=== PATIENT | female | born 1935 | race Asian ===

== ENCOUNTER 2021-12-13 18:58 | Inpatient (IN) | payer OTHER, MEDICAID ==
[~2021-12-13] VITALS: Ht 160 cm; Wt 56.7 kg
[2021-12-13 19:00] VITALS: BP 117/46
--- NOTE | 2021-12-13 19:00 | NUR ---
Patient to to bed 7 by EMS
--- NOTE | 2021-12-13 19:05 | NUR ---
BIBA TO ROOM 7
--- NOTE | 2021-12-13 19:06 | NUR ---
MD CARDENAS AT BEDSIDE FOR EVALUATION
--- NOTE | 2021-12-13 19:31 | NUR ---
RADIOLOGY AT BEDSIDE
[2021-12-13] MEDS ORDERED: AMOX500C25 PO (19:54)
[2021-12-13] MEDS ORDERED: SENN-73 PO (19:54)
[2021-12-13] MEDS ORDERED: CLOP75TA26 PO (19:54)
[2021-12-13] MEDS ORDERED: FURO-572 PO (19:54)
[2021-12-13] MEDS ORDERED: FOLI0.8T22 PO (19:54)
[2021-12-13] MEDS ORDERED: CARV3.12 PO (19:54)
[2021-12-13] MEDS ORDERED: cefTRIAXone 1,000 MG in DEXT 5% MINI-BAG PLUS 50 ML IV ONE (19:55)
--- NOTE | 2021-12-13 19:55 | NUR ---
ETHAN AND DEDE COLLECTED TAKEN TO LAB.
--- NOTE | 2021-12-13 20:00 | NUR ---
86 yo f david from an independent living home w c/c of 08/31 nonrad chest pain since 0800. pt points at mischest. Pt without treatment for pain. Pt denies fever, chills, nausea or vomiting. Pt with SOB. Pt denies cough. hx:chf, htn
[2021-12-13 20:05] LABS: BASOPHILS # (AUTO) 0.1 K/uL (0.00-0.22); BASOPHILS % (AUTO) 0.8 % (0.0-2.0); EOSINOPHILS # (AUTO) 0.2 K/uL (0-0.4); EOSINOPHILS % (AUTO) 2.5 % (0.0-4.0); HEMATOCRIT 34.5 % (36-48); HEMOGLOBIN 11.5 g/dL (12.0-16.0); LYMPHOCYTES # (AUTO) 0.9 K/uL (2.5-16.5); LYMPHOCYTES % (AUTO) 13.9 % (20.5-51.1); MEAN CORPUSCULAR HEMOGLOBIN 30 pg (27-31); MEAN CORPUSCULAR HGB CONC 33 g/dL (33-37); MONOCYTES # (AUTO) 0.5 K/uL (0.8-1.0); MONOCYTES % (AUTO) 7.7 % (1.7-9.3); NEUTROPHILS # (AUTO) 5.1 K/uL (1.8-7.7); NEUTROPHILS % (AUTO) 75.1 % (42.2-75.2); PLATELET COUNT (AUTO) 228 K/uL (140-450); RED BLOOD CELL COUNT(AUTO) 3.79 MIL/uL (4.20-5.40); RED CELL DISTRIBUTION WIDTH 15.3 % (11.6-13.7); WHITE BLOOD COUNT (AUTO) 6.8 K/uL (4.8-10.8)
--- NOTE | 2021-12-13 20:18 | NUR ---
lab at bedside for cultures.
[2021-12-13] MEDS ORDERED: cefTRIAXone 1,000 MG VIAL ONE (20:23)
[2021-12-13 21:19] LABS: ALBUMIN 2.6 g/dL (3.4-5.0); ANION GAP 10.9 (8-16); ASPARTATE AMINOTRANSFERASE 29 U/L (15-37); CHLORIDE 103 mmol/L (98-107); CREATININE 1.1 mg/dL (0.6-1.3); GLUCOSE 165 mg/dL (74-106); POTASSIUM 3.9 mmol/L (3.5-5.1); SODIUM SERUM 138 mmol/L (136-145); TOTAL BILIRUBIN 0.3 mg/dL (0.0-1.0); UREA NITROGEN, BLOOD 27 mg/dL (7-18)
[2021-12-13] MEDS ORDERED: DOCUSATE SODIUM 100 MG GELCAP PO PRN (21:50)
[2021-12-13] MEDS ORDERED: ZOLPIDEM 5 MG TAB PO PRN (21:50)
[2021-12-13] MEDS ORDERED: ONDANSETRON 4 MG/2 ML VIAL IM/IVP PRN (21:50)
[2021-12-13] MEDS ORDERED: ACETAMINOPHEN 325 MG TAB PO PRN (21:50)
[2021-12-13] MEDS ORDERED: guaiFENesin DM 200/20 MG-10 ML 10 ML UDC PO PRN (21:50)
[2021-12-13] MEDS ORDERED: AZITHROMYCIN 500 MG INJ VIAL IV ONE (23:00)
[2021-12-13] MEDS: ENOXAPARIN 60 MG/0.6 ML SYR SUBQ SCH (23:10)
[2021-12-13] MEDS: FUROSEMIDE 40 MG/4 ML VIAL IVP SCH (23:12)
[2021-12-13] MEDS: AZITHROMYCIN 500 MG in DEXTROSE 5% 250 ML IV SCH (23:13)
[2021-12-13] MEDS: LOVENOX 1MG/KG Q12H SUBQ SCH (23:14)
[2021-12-13 23:18] LABS: PROTHROMBIN TIME 10.4 secs (10.8-13.4)
[2021-12-13 23:31] LABS: MAGNESIUM 2.3 mg/dL (1.8-2.4); PHOSPHORUS 3.5 mg/dL (2.5-4.9)
--- NOTE | 2021-12-13 23:35 | NUR ---
pt ambulated to and back to bed.
--- NOTE | 2021-12-14 00:10 | NUR ---
pt ambulated to and back ot bed.
--- NOTE | 2021-12-14 00:15 | NUR ---
Patient will be admitted to care of . Admited to tele. Will go to [id number]. Belongings list completed. Report to allen luevano.
[2021-12-14 00:20] VITALS: BP 118/75
--- NOTE | 2021-12-14 00:39 | NUR ---
GET THE PATIENT FROM ER NURSE BHUPENDRA, PATIENT IS ALERT ORIENTED X3, PATIENT SPEAK MANDARIN LANGUAGE, PATIENT IS LYING ON BED, PATIENT IS RECEIVING OXYGEN 2 LITER VIA NASAL CANNULA, VITAL SIGN IS WITHIN THE NORMAL RANGE, ALL FALL PRECAUTION MEASURE ARE IN PLACE, CALL LIGHT IS WITHIN THE REACH, WILL CONTINUE TO MONITOR PATIENT.
--- NOTE | 2021-12-14 02:14 | NUR ---
USE ENVELOPE MACHINE OPERATOR TO TRANSLATE LANGUAGE , NAME: EDITH, ID NO : [id number]
[2021-12-14 04:00] VITALS: BP 119/60
--- NOTE | 2021-12-14 04:26 | NUR ---
VITAL SIGN IS WITHIN THE NORMAL RANGE, ALL SCHEDULE MEDICATION IS GIVEN PER DOCTOR ORDER, NO ANY COMPLAIN OF PAIN OR SHORTNESS OF BREATH AT THIS TIME, CALL LIGHT IS WITHIN THE REACH, WILL CONTINUE TO MONITOR PATIENT.
[2021-12-14 06:56] LABS: BASOPHILS # (AUTO) 0.1 K/uL (0.00-0.22); EOSINOPHILS # (AUTO) 0.3 K/uL (0-0.4); EOSINOPHILS % (AUTO) 4.2 % (0.0-4.0); HEMATOCRIT 33.2 % (36-48); HEMOGLOBIN 11.1 g/dL (12.0-16.0); LYMPHOCYTES # (AUTO) 1.8 K/uL (2.5-16.5); LYMPHOCYTES % (AUTO) 21.8 % (20.5-51.1); MEAN CORPUSCULAR HEMOGLOBIN 30 pg (27-31); MEAN CORPUSCULAR HGB CONC 33 g/dL (33-37); MEAN CORPUSCULAR VOLUME 90.5 fL (80-94); MONOCYTES # (AUTO) 0.8 K/uL (0.8-1.0); MONOCYTES % (AUTO) 10.2 % (1.7-9.3); NEUTROPHILS # (AUTO) 5.2 K/uL (1.8-7.7); NEUTROPHILS % (AUTO) 62.8 % (42.2-75.2); PLATELET COUNT (AUTO) 224 K/uL (140-450); RED BLOOD CELL COUNT(AUTO) 3.67 MIL/uL (4.20-5.40); RED CELL DISTRIBUTION WIDTH 15.6 % (11.6-13.7); WHITE BLOOD COUNT (AUTO) 8.2 K/uL (4.8-10.8)
[2021-12-14 07:18] LABS: ANION GAP 10.2 (8-16); CHLORIDE 103 mmol/L (98-107); CREATININE 1.1 mg/dL (0.6-1.3); GLUCOSE 90 mg/dL (74-106); POTASSIUM 3.2 mmol/L (3.5-5.1); SODIUM SERUM 139 mmol/L (136-145); UREA NITROGEN, BLOOD 21 mg/dL (7-18)
--- NOTE | 2021-12-14 07:37 | NUR ---
gave the report to morning nurse anna for continuos of care, patient is stable.
--- NOTE | 2021-12-14 07:40 | NUR ---
RECEIVED PT AWAKE AND ALERT. MANDARIN SPEAKING. ON O2 VIA N/C. SINUS RHYTHM ON MONITOR. ABD SOFT WITH ACTIVE BOWEL SOUNDS. CONTINENT BOWEL AND BLADDER. PERIPHERAL IV RAC 20 GAUGE SALINE LOCKED. SAFETY PRECAUTIONS IN PLACE.
[2021-12-14 08:00] VITALS: BP 121/73
[2021-12-14] MEDS: CLOPIDOGREL 75 MG TAB PO SCH (08:43)
[2021-12-14] MEDS: SENNA 8.6 MG TAB PO SCH (08:43)
[2021-12-14] MEDS: FUROSEMIDE 40 MG/4 ML VIAL IVP SCH (08:44)
[2021-12-14] MEDS: carvediloL 3.125 MG TAB PO SCH ×2 (08:44→21:00)
[2021-12-14] MEDS: LOVENOX 1MG/KG Q12H SUBQ SCH (09:00)
[2021-12-14] MEDS ORDERED: POTASSIUM CHLORIDE 10 MEQ TABER PO SCH (10:00)
[2021-12-14] MEDS ORDERED: POTASSIUM CHLORIDE 10 MEQ TABER PO PRN (10:20)
[2021-12-14] MEDS: ENOXAPARIN 60 MG/0.6 ML SYR SUBQ SCH ×2 (10:24→21:33)
--- NOTE | 2021-12-14 11:15 | NUR ---
DR. KOO AT BEDSIDE EXAMINING PT.
[2021-12-14 12:00] VITALS: BP 133/68
[2021-12-14] MEDS ORDERED: MAG SULF 2000 MG/WATER PREMIX 50 ML IV PRN (13:30)
[2021-12-14 16:00] VITALS: BP 97/60
--- NOTE | 2021-12-14 18:23 | NUR ---
URINE COLLECTED AND WALKED TO LAB.
[2021-12-14 18:32] LABS: APPEARANCE,URINE CLEAR (CLEAR); BILIRUBIN,URINE NEGATIVE (NEGATIVE); BLOOD, URINE TRACE-I (NEGATIVE); COLOR,URINE YELLOW (YELLOW); LEUKOCYTE ESTERASE ,URINE NEGATIVE (NEGATIVE); NITRITE, URINE NEGATIVE (NEGATIVE); UGLUCOSE NEGATIVE (NEGATIVE)
[2021-12-14 18:45] LABS: RBC,URINE 0-5 /HPF (0-5); WBC,URINE 0-5 /HPF (0-5)
[2021-12-14 18:46] LABS: TRICHOMONAS,URINE None Seen /HPF (None Seen); YEAST,URINE None Seen /HPF (None Seen)
--- NOTE | 2021-12-14 19:10 | NUR ---
ENDORSED TO MOLD FILLING OPERATOR NURSE GUILLERMO FOR CONTINUITY OF CARE.
--- NOTE | 2021-12-14 19:30 | NUR ---
RECEIVED PT FROM AM NURSE FOR CONTINUITY OF CARE. PT IS STABLE
[2021-12-14 20:00] VITALS: BP 98/62
[2021-12-14] MEDS: AZITHROMYCIN 500 MG in DEXTROSE 5% 250 ML IV SCH (20:00)
[2021-12-15] VITALS: BP 99/56
--- NOTE | 2021-12-15 01:00 | NUR ---
PATIENT ASLEEP, NO DISTRESS NOTED
[2021-12-15 04:00] VITALS: BP 98/59
--- NOTE | 2021-12-15 07:15 | NUR ---
RECEIVED REPORT FROM GROUP COUNSELOR NURSE FOR CONTINUITY OF CARE. PATIENT AWAKE NO DISTRESS NOTED ON O2 AT 2L/MIN VIA NASAL CANULA. IV SITE ON RIGHT AC MARVA 20 SALINE LOCK. PATIENT ON STABLE CONDITION.
--- NOTE | 2021-12-15 07:15 | NUR ---
ENDORSED PT TO AM NURSE FOR CONTINUITY OF CARE. PT IS STABLE
[2021-12-15 07:26] LABS: ANION GAP 11.8 (8-16); CARBON DIOXIDE 30.2 mmol/L (21-32); CHLORIDE 100 mmol/L (98-107); CREATININE 1.2 mg/dL (0.6-1.3); GLUCOSE 95 mg/dL (74-106); SODIUM SERUM 138 mmol/L (136-145); UREA NITROGEN, BLOOD 24 mg/dL (7-18)
[2021-12-15 07:34] LABS: BASOPHILS # (AUTO) 0.1 K/uL (0.00-0.22); BASOPHILS % (AUTO) 0.7 % (0.0-2.0); EOSINOPHILS # (AUTO) 0.4 K/uL (0-0.4); HEMATOCRIT 33.9 % (36-48); HEMOGLOBIN 11.2 g/dL (12.0-16.0); LYMPHOCYTES # (AUTO) 2.3 K/uL (2.5-16.5); LYMPHOCYTES % (AUTO) 30.2 % (20.5-51.1); MEAN CORPUSCULAR HEMOGLOBIN 30 pg (27-31); MEAN CORPUSCULAR HGB CONC 33 g/dL (33-37); MEAN CORPUSCULAR VOLUME 90.6 fL (80-94); MONOCYTES # (AUTO) 0.8 K/uL (0.8-1.0); MONOCYTES % (AUTO) 10.4 % (1.7-9.3); NEUTROPHILS % (AUTO) 53.7 % (42.2-75.2); PLATELET COUNT (AUTO) 201 K/uL (140-450); RED BLOOD CELL COUNT(AUTO) 3.74 MIL/uL (4.20-5.40); RED CELL DISTRIBUTION WIDTH 15.7 % (11.6-13.7); WHITE BLOOD COUNT (AUTO) 7.5 K/uL (4.8-10.8)
[2021-12-15 08:00] VITALS: BP 90/54
[2021-12-15] MEDS: FUROSEMIDE 40 MG/4 ML VIAL IVP SCH (08:52)
[2021-12-15] MEDS: AZITHROMYCIN 500 MG in DEXTROSE 5% 250 ML IV SCH (08:52)
[2021-12-15] MEDS: carvediloL 3.125 MG TAB PO SCH ×2 (09:00→20:23)
[2021-12-15] MEDS: CLOPIDOGREL 75 MG TAB PO SCH (09:27)
[2021-12-15] MEDS: SENNA 8.6 MG TAB PO SCH (09:27)
[2021-12-15] MEDS: ENOXAPARIN 60 MG/0.6 ML SYR SUBQ SCH (09:28)
--- NOTE | 2021-12-15 09:35 | NUR ---
GIVEN DUE MEDICATION HELD COREG AND LASIX DUE TO BLOOD PRESSURE OF 90/54. PATIENT ASSISTED TO TOILET. IV ANTIBIOTIC INFUSING AT THIS TIME NO ADVERSE REACTION NOTED NO COUGHING OR CONGESTION NOTED.
--- NOTE | 2021-12-15 10:42 | NUR ---
PATIENT HAS BEEN SCREENED AND CATEGORIZED MODERATE NUTRITION RISK. PATIENT WILL BE SEEN WITHIN 3-5 DAYS OF ADMISSION. 12/13/21-12/18/21 REVIEWED BY TIAN VILL[address] RD
[2021-12-15 12:00] VITALS: BP 122/67
--- NOTE | 2021-12-15 12:07 | NUR ---
P.T. NOTES P.T. EVAL COMPLETED; REFER TO EVAL FOR DETAILS.
--- NOTE | 2021-12-15 14:35 | NUR ---
DC PLANNING PER NOTES, PT IS A&OX3 THEREFORE, GISELA OUTREACHED TO PT'S DAUGHTER RINA,DAUGHTER, TO GATHER COLLATERAL INFORMATION HOWEVER, RINA REQUESTED SW CALL HER BROTHER, KAMILLA, TO GATHER COLLATERAL INFORMATION. GISELA SPOKE WITH KAMILLA WHO REPORTS THAT PT RESIDES ALONE IN AN APT. PATIENT REPORTS HE, AND RINA GLORIA ARE PT EMERGENCY CONTACTS. KAMILLA REPORTS THAT PATIENT MEETS WITH HER PCP, DR KEYES, LAST VISIT; ONE WEEK AGO. PATIENTS NIECE IS REPORTED TO ASSIST IN TAKING PT TO MEET WITH PCP, WHEN NEEDED. PATIENT IS REPORTED TO MEDICATION COMPLIANT, FAMILY DENIES BARRIERS IN ACCESS TO NEEDED MEDICATIONS. PATIENTS MEDICATION IS DELIVERED TO HER HOME BY [facility]. PATIENT IS REPORTED TO BE AMBULATORY WITH DME ASSISTANCE; WALKER, CANE, HOME O2. PATIENT REQUIRES SOME ASSISTANCE WITH [place] WHICH PTS DAUGHTER AIDS IN. PATIENT IS REPORTED TO BE RECEIVING HH SERVICES BEGAN THREE WEEKS AGO, HOWEVER, KAMILLA UNABLE TO RECALL NAME OF HH AGENCY. PATIENT REPORTS THAT HH WAS ARRANGED BY PT'S PCP. BRAIN DENIES HX OF SNF PLACEMENT. KAMILLA REPORTS DC PLAN IS FOR PATIENT TO RETURN HOME AND THAT ACCESS TRANSPORTATION WILL BE ARRANGED FOR P/U ONCE CLEARED FOR DC. GISELA INQUIRED ON RESOURCES NEEDED, KAMILLA DECLINED AT THIS TIME.
--- NOTE | 2021-12-15 15:06 | NUR ---
DC PLANNING: PATIENT HAS AN ORDER FOR HOME HEALTH FOR PT. FAXED TO [facility] CM TO FOLLOW Addendum: 12/16/21 at 1512 by Elise Greenfield RN DC PLANNING: PATIENT IS STILL SYMPTOMATIC, SEEN BY SUSTAINABILITY SPECIALIST RECOMMENDED CONSERVATIVE CARDIAC MANAGEMENT FOLLOW UP WITH ECHO CONTINUE LASIX IV . DC PLAN TO GO HOME WITH [facility] TOMORROW. CM TO FOLLOW Addendum: 12/17/21 at 1220 by Elise Greenfield RN DC PLANNING: PER FAMILY MEMBER PATIENT IS WITH [facility] CALLED [phone] SPOKE WITH IDANIA STATED THEY CAN RESUME THE CARE UPON DISCHARGE. FAXED ALL PAPER WORK TO [phone]. PT WILL BE DC HOME WITH HOME HEALTH TODAY. NOTIFIED OSITO PEREZ.
[2021-12-15 16:00] VITALS: BP 109/61
--- NOTE | 2021-12-15 16:00 | NUR ---
PATIENT ON BED RESTING OFFERED TEA AND SHE LIKE IT. CALL LIGHT WITH IN EASY REACH.
--- NOTE | 2021-12-15 19:03 | NUR ---
PATIENT ON BED JUST FINISH EATING DINNER ATE 90 % OF HER DINNER. CALL LIGHT WITH IN EASY REACH.
--- NOTE | 2021-12-15 19:28 | NUR ---
GAVE REPORT TO ELECTRICAL SUBCONTRACTOR NURSE SUZIE FOR CONTINUITY OF CARE.
[2021-12-15 20:00] VITALS: BP 98/56
--- NOTE | 2021-12-15 20:00 | NUR ---
RECEIVED BEDSIDE REPORT FROM DAY NURSE FOR CONTINUITY OF CARE. RECEIVED PATIENT LAYING IN BED QUIETLY. NO SIGN AND SYMPTOMS OF DISTRESS NOTED. PT DENIES CHEST PAIN, SOB, PALPITATIONS AND DIZZINESS. FALL PRECAUTION IMPLEMENTED. INSTRUCTED THE PT TO CALL FOR ASSISTANCE AT ALL TIMES.CALL LIGHT WITHIN REACH. WILL CONTINUE POC.
--- NOTE | 2021-12-15 20:24 | NUR ---
HELD COREG, PATIENT BP 98/56.
[2021-12-16] VITALS: BP 99/59
--- NOTE | 2021-12-16 | NUR ---
BP 99/59, HR-79,AFEBRILE, SATING 98% ON 2L/NC. SR/SA ON TELE, HR-80. DENIES PAIN PAIN. CALL LIGHT WITHIN REACH.
--- NOTE | 2021-12-16 02:00 | NUR ---
PATIENT ASLEEP AT THIS TIME. VISIBLE CHEST RISE AND FALL NOTED. WILL CONTINUE TO OBSERVE.
[2021-12-16 04:00] VITALS: BP 104/56
--- NOTE | 2021-12-16 04:00 | NUR ---
VITAL SIGNS STABLE, AFEBRILE, SATING 96% ON 2L/NC DENIES PAIN AND NOT IN ANY DISTRESS. SR/SA ON TELE ,HR- 84. CALL LIGHT WITHIN REACH.
--- NOTE | 2021-12-16 04:30 | NUR ---
USED THE MANDARIN SENIOR SOFTWARE DEVELOPMENT ENGINEER FROM [employer] TO ASKED PATIENT QUESTIONS. PATIENT UNABLE TO HEAR WELL EVEN WITH HER LEFT HEARING AIDE IN PLACED. OTHERWISE NO COMPLAIN AT THIS TIME AND ABLE TO ANSWER SOME OF THE QUESTION.
--- NOTE | 2021-12-16 06:00 | NUR ---
NO ACUTE EVENT THROUGHOUT THE NIGHT. PATIENT NOT IN ANY DISTRESS AND NO COMPLAIN AT THIS TIME. PATIENT STABLE. ALL NEEDS ATTENDED. CALL LIGHT WITHIN REACH . WILL ENDORSE THE PATIENT TO THE ONCOMING NURSE FOR CONTINUITY OF CARE.
--- NOTE | 2021-12-16 07:19 | NUR ---
ENDORSED PATIENT TO DAY NURSE. PATIENT IS STABLE. SIGNING OFF.
--- NOTE | 2021-12-16 07:21 | NUR ---
RECEIVED PT FROM DATAPOWER CONSULTANT NURSE FOR CONTINUITY OF CARE. PT IN BED AWAKE. RESPIRATIONS EVEN AND UNLABORED. NO SIGNS OF DISTRESS NOTED. CALL LIGHT WITHIN REACH. ALL SAFETY PRECAUTIONS IN PLACE.
[2021-12-16 07:24] LABS: BASOPHILS # (AUTO) 0.1 K/uL (0.00-0.22); EOSINOPHILS # (AUTO) 0.5 K/uL (0-0.4); HEMATOCRIT 33.5 % (36-48); HEMOGLOBIN 11.4 g/dL (12.0-16.0); LYMPHOCYTES % (AUTO) 21.6 % (20.5-51.1); MEAN CORPUSCULAR HEMOGLOBIN 31 pg (27-31); MEAN CORPUSCULAR HGB CONC 34 g/dL (33-37); MEAN CORPUSCULAR VOLUME 90.2 fL (80-94); MONOCYTES # (AUTO) 0.7 K/uL (0.8-1.0); MONOCYTES % (AUTO) 7.8 % (1.7-9.3); NEUTROPHILS # (AUTO) 5.8 K/uL (1.8-7.7); NEUTROPHILS % (AUTO) 64.6 % (42.2-75.2); RED BLOOD CELL COUNT(AUTO) 3.72 MIL/uL (4.20-5.40); RED CELL DISTRIBUTION WIDTH 15.6 % (11.6-13.7); WHITE BLOOD COUNT (AUTO) 9.1 K/uL (4.8-10.8)
[2021-12-16 07:30] LABS: ANION GAP 8.9 (8-16); CARBON DIOXIDE 32.9 mmol/L (21-32); CHLORIDE 101 mmol/L (98-107); CREATININE 1.2 mg/dL (0.6-1.3); GLUCOSE 98 mg/dL (74-106); POTASSIUM 3.8 mmol/L (3.5-5.1); SODIUM SERUM 139 mmol/L (136-145); UREA NITROGEN, BLOOD 21 mg/dL (7-18)
[2021-12-16 08:00] VITALS: BP 141/59
[2021-12-16 08:23] LABS: PLATELET COUNT (AUTO) 217 K/uL (140-450)
[2021-12-16] MEDS: SENNA 8.6 MG TAB PO SCH (09:39)
[2021-12-16] MEDS: CLOPIDOGREL 75 MG TAB PO SCH (09:40)
[2021-12-16] MEDS: carvediloL 3.125 MG TAB PO SCH ×2 (09:40→21:08)
[2021-12-16] MEDS: ENOXAPARIN 40 MG/0.4 ML SYR SUBQ SCH (09:41)
[2021-12-16] MEDS: FUROSEMIDE 40 MG/4 ML VIAL IVP SCH (09:48)
--- NOTE | 2021-12-16 09:49 | NUR ---
ADMINISTERED SCHEDULED ORAL MEDS. PT TOLERATED WELL.
[2021-12-16] MEDS: AZITHROMYCIN 500 MG in DEXTROSE 5% 250 ML IV SCH (09:54)
--- NOTE | 2021-12-16 11:36 | NUR ---
PT COMPLAINS OF PAIN ON R A/C IV SITE. WILL ATTEMPT A NEW SITE.
--- NOTE | 2021-12-16 11:42 | NUR ---
R A/C IS STILL PATENT AND PT AGREED TO WAIT UNTIL ANTIBIOTIC IS DONE, IF STILL IN PAIN WILL PUT NEW ONE.
[2021-12-16 12:00] VITALS: BP 115/45
--- NOTE | 2021-12-16 14:30 | NUR ---
PT IN BED WITH EYES CLOSED. EVEN CHEST RISE AND FALL. RESPIRATIONS EVEN AND UNLABORED. CALL LIGHT WITHIN REACH.
[2021-12-16 16:00] VITALS: BP 122/57
--- NOTE | 2021-12-16 17:45 | NUR ---
PT DAUGHTER CALLED ASKING FOR UPDATE. UPDATED ON PT CURRENT CONDITION AND PLAN OF CARE.
--- NOTE | 2021-12-16 19:18 | NUR ---
ENDORSED PT TO REPLANTING MACHINE CREWMAN NURSE FOR CONTINUITY OF CARE. PT IN STABLE CONDITION.
[2021-12-16 19:43] VITALS: BP 109/59
[2021-12-17] VITALS: BP 105/56
[2021-12-17 04:40] VITALS: BP 126/59
--- NOTE | 2021-12-17 06:54 | NUR ---
PATIENT HAD LOW BLOOD PRESSURE BUT STABLE THROUGHOUT THE SHIFT. THIS AM ITS BETTER. WILL ENDORSE TO ONCOMING SHIFT FOR CONTINUITY OF CARE
--- NOTE | 2021-12-17 07:25 | NUR ---
RECEIVED REPORT FROM SLUBBER FRAME CHANGER NURSE FOR CONTINUITY OF CARE. PT IN BED, AND AWAKE. RESPIRATIONS EVEN AND UNLABORED ON 2L N/C. CALL LIGHT WITHIN REACH. ALL SAFETY MEASURES IN PLACE.
[2021-12-17 07:29] LABS: BASOPHILS # (AUTO) 0.1 K/uL (0.00-0.22); BASOPHILS % (AUTO) 0.7 % (0.0-2.0); EOSINOPHILS # (AUTO) 0.3 K/uL (0-0.4); HEMATOCRIT 36.4 % (36-48); HEMOGLOBIN 11.9 g/dL (12.0-16.0); LYMPHOCYTES # (AUTO) 3.1 K/uL (2.5-16.5); LYMPHOCYTES % (AUTO) 35.8 % (20.5-51.1); MEAN CORPUSCULAR HEMOGLOBIN 30 pg (27-31); MEAN CORPUSCULAR HGB CONC 33 g/dL (33-37); MEAN CORPUSCULAR VOLUME 91.7 fL (80-94); MONOCYTES # (AUTO) 0.6 K/uL (0.8-1.0); MONOCYTES % (AUTO) 7.3 % (1.7-9.3); NEUTROPHILS # (AUTO) 4.6 K/uL (1.8-7.7); NEUTROPHILS % (AUTO) 53.2 % (42.2-75.2); PLATELET COUNT (AUTO) 237 K/uL (140-450); RED BLOOD CELL COUNT(AUTO) 3.97 MIL/uL (4.20-5.40); RED CELL DISTRIBUTION WIDTH 15.8 % (11.6-13.7); WHITE BLOOD COUNT (AUTO) 8.6 K/uL (4.8-10.8)
[2021-12-17 07:40] LABS: ANION GAP 7.4 (8-16); CARBON DIOXIDE 33.1 mmol/L (21-32); CHLORIDE 98 mmol/L (98-107); CREATININE 1.2 mg/dL (0.6-1.3); GLUCOSE 104 mg/dL (74-106); POTASSIUM 3.5 mmol/L (3.5-5.1); SODIUM SERUM 135 mmol/L (136-145); UREA NITROGEN, BLOOD 23 mg/dL (7-18)
[2021-12-17 08:00] VITALS: BP 107/64
[2021-12-17] MEDS: AZITHROMYCIN 500 MG in DEXTROSE 5% 250 ML IV SCH (09:00)
[2021-12-17] MEDS: FUROSEMIDE 40 MG/4 ML VIAL IVP SCH (09:04)
[2021-12-17] MEDS: SENNA 8.6 MG TAB PO SCH (09:35)
[2021-12-17] MEDS: CLOPIDOGREL 75 MG TAB PO SCH (09:35)
[2021-12-17] MEDS: ENOXAPARIN 40 MG/0.4 ML SYR SUBQ SCH (09:37)
[2021-12-17] MEDS: carvediloL 3.125 MG TAB PO SCH (09:41)
--- NOTE | 2021-12-17 09:44 | NUR ---
ADMIN ALL SCHEDULED MEDS. PT TOLERATED WELL.
[2021-12-17] MEDS ORDERED: LEVO-481 PO (10:54)
[2021-12-17] MEDS ORDERED: FURO-570 PO (10:54)
--- NOTE | 2021-12-17 11:00 | NUR ---
INFORMED PT AND DAUGHTER REGARDING DISCHARGE ORDER INTERPRETED BY GERSON CHERY. VERBALIZED UNDERSTANDING.
[2021-12-17 11:17] VITALS: BP 107/64
--- NOTE | 2021-12-17 13:30 | NUR ---
PT REMOVED OXYGEN. AFTER 5 MINS CHECKED PT O2 SATURATING AT 93-94%. INSTRUCTED PT O2 IS OKAY FROM 90% AND ABOVE.
--- NOTE | 2021-12-17 13:50 | NUR ---
PT DAUGHTER AND GRANDDAUGHTER ARRIVED TO HOSPITAL. MIRI NIETO TRANSLATED TEACHING REGARDING DISCHARGE PACKET TO PT AND FAMILY. PT NAME BAND AND IV REMOVED. PERSONAL BELONGINGS GATHERED AND CARRIED OUT BY PATIENTS DAUGHTER. PT TAKEN TO FRONT OF LOBBY VIA WHEELCHAIR. VEHICLE BROUGHT AROUND THE FRONT. PATIENT GOT IN VEHICLE SAFELY. PATIENT DISCHARGE TO HOME. PT STABLE.
== END 2021-12-17 13:50 | disposition home health service (06) | DRG 871 ==
LOC: MED 18:58 → MTU 21:43
PROVIDERS: ADMIT Student in an Organized Health Care Education/Training Program; ATTEND Student in an Organized Health Care Education/Training Program
DX: A41.9 Sepsis, unspecified organism (principal); E43 Unspecified severe protein-calorie malnutrition; J69.0 Pneumonitis due to inhalation of food and vomit; G93.41 Metabolic encephalopathy; I21.4 Non-ST elevation (NSTEMI) myocardial infarction; J96.01 Acute respiratory failure with hypoxia; I50.43 Acute on chronic combined systolic (congestive) and diastolic (congestive) heart failure; I24.9 Acute ischemic heart disease, unspecified; D63.8 Anemia in other chronic diseases classified elsewhere; Z20.822 Contact with and (suspected) exposure to COVID-19; E87.6 Hypokalemia; I25.10 Atherosclerotic heart disease of native coronary artery without angina pectoris; I11.0 Hypertensive heart disease with heart failure; Z90.5 Acquired absence of kidney; Z68.22 Body mass index [BMI] 22.0-22.9, adult
CPT/HCPCS: 36415; 71045; 80048; 80053; 81001; 82150; 83605; 83690; 83735; 83880; 84100; 84484; 85025; 85610; 85730; 87040; 87081; 93005; 96365; 96367; 97110; 97112; 97116; 97530; 99285; J0456; J0696; J1650; J1940; J7060; Q0092